=== PATIENT | male | born 1995 | race Hispanic/Latino ===

== ENCOUNTER 2018-03-04 22:19 | Emergency (ER) | payer BC, SELFPAY ==
[2018-03-04] MEDS ORDERED: IBUPROFEN 400 MG TAB ONE (22:44)
--- NOTE | 2018-03-04 23:23 | ER ---
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 I was able to pull myself up but my right leg got pinned by the gate." Pt reports severe pain in mid calf area. No deformity noted, good pedal pulses. Transition of care: patient was not received from another setting of care. Onset of symptoms was March 04, 2018 at 21:30. Risk Assessment: Do you want to hurt yourself or someone else? Patient reports no desire to harm self or others. Initial Sepsis Screen: Does the patient meet any 2 criteria? No. Patient's initial sepsis screen is negative. Does the patient have a suspected source of infection? No. Patient's initial sepsis screen is negative. Care prior to arrival: Splint applied. 22:30 Method Of Arrival: EMS: [facility] tl2 22:30 Acuity: NASIMA 4 tl2 Triage Assessment: 22:32 General: Appears in no apparent distress. uncomfortable, Behavior is calm, cooperative, tl2 appropriate for age. Pain: Complains of pain in right [place] Pain currently is 8 out of 10 on a pain scale. Neuro: Level of Consciousness is awake, alert, obeys commands, Oriented to person, place, time, situation. Cardiovascular: Denies chest pain. Respiratory: Airway is patent Respiratory effort is even, unlabored, Respiratory pattern is regular, symmetrical. GI: No signs and/or symptoms were reported involving the gastrointestinal system. Derm: Skin is pink, warm \\T\\ dry. Injury Description: Crush injury sustained to right mag[place]. Historical: - Allergies: 22:32 No Known Allergies; tl2 - Home Meds: 22:32 None [Active]; tl2 - PMHx: 22:32 None; tl2 - PSHx: 22:32 None; tl2 - Immunization history:: Adult Immunizations up to date. - Social history:: Smoking status: Patient uses tobacco products, denies chronic smoking, but will smoke occasionally. - Ebola Screening: : No symptoms or risks identified at this time. Screenin:34 Abuse screen: Denies threats or abuse. Nutritional screening: No deficits noted. tl2 Tuberculosis screening: No symptoms or risk factors identified. Fall Risk Gait- Impaired (20 pts.). Assessment: 22:32 General: see triage assessment. tl2 03/05 00:01 Reassessment: Patient appears in no apparent distress at this time. Patient and/or tl2 family updated on plan of care and expected duration. Pain level reassessed. Patient is alert, oriented x 3, equal unlabored respirations, skin warm/dry/pink. Pt verbalized understanding of discharge instructions, need for follow up and prescription usage Patient states feeling better. Vital Signs: 03/04 22:32 BP 136 / 98; Pulse 88; Resp 18; Temp 97.8(O); Pulse Ox 98% on R/A; Weight 99.79 kg; tl2 Height 5 ft. 5 in. (165.10 cm); Pain 8/10; 03/05 00:01 BP 136 / 86; Pulse 80; Resp 18; Pulse Ox 100% on R/A; tl2 10 22:32 Body Mass Index 36.61 (99.79 kg, 165.10 cm) tl2 ED Course: 03/04 22:20 Patient arrived in ED. ds1 22:22 Willa Rocha, RN is Primary Nurse. tl2 22:29 Celia Hoang FNP-C is PHCP. snw 22:29 Gil Funes MD is Attending Physician. snw 22:31 Triage completed. tl2 22:32 Arm band placed on right wrist. tl2 22:34 Patient has correct armband on for positive identification. Call light in reach. Side tl2 rails up X2. 22:43 Tib Fib Right XRAY In Process Unspecified. EDMS 03/05 00:01 No provider procedures requiring assistance completed. Patient did not have IV access tl2 during this emergency room visit. Administered Medications: 03/04 22:38 Drug: Motrin 400 mg Route: PO; tl2 03/05 00:02 Follow up: Response: No adverse reaction; Pain is decreased tl2 Outcome: 03/04 23:22 Discharge ordered by . snw 03/05 00:01 Discharged to home ambulatory, with family. tl2 Condition: stable Discharge instructions given to patient, family, Instructed on discharge instructions, follow up and referral plans. medication usage, Demonstrated understanding of instructions, follow-up care, medications, Prescriptions given X 1. 00:02 Patient left the ED. tl2 Signatures: Dispatcher [employer] EDMS Celia Hoang, SAFETY BELT INSTALLER-C SAFETY BELT INSTALLER-Brigitte Valenzuela ds1 Willa Rocha, RN RN tl2
--- NOTE | 2018-03-04 23:23 | EDPHYS ---
Physician Documentation [facility] Name: Darion Reese Age: 23 yrs Sex: Male : 1995 Arrival Date: 03/04/2018 Time: 22:20 Bed 8 Private MD: ED Physician Gil Funes HPI: 03/04 22:45 This 23 yrs old Male presents to ER via EMS with complaints of Crush Injury To snw Leg. 22:45 The patient presents with an abrasion, a crush injury, from a heavy object, pain. The snw complaints affect the right mag[place]. Context: The problem was sustained at work, resulted from a crush injury, from industrial equipment, from a machinery, the patient can partially bear weight, Problem is a result from a previous injury: No. Onset: The symptoms/episode began/occurred suddenly, just prior to arrival. Associated signs and symptoms: The patient has no apparent associated signs or symptoms. Treatment prior to arrival includes: no previous treatment. Treatment prior to arrival includes: splinting the affected extremity. Severity of symptoms: At their worst the symptoms were mild. The patient has not experienced similar symptoms in the past. It is unknown whether or not the patient has recently seen a physician. Pt states he was on the back of a rail car, the gate was closing and pt jumped out of the way but got caught between the gate and the platform x 2 minutes. No LOC, initial lower back pain that has improved, right tib/fib splinted per ems. Historical: - Allergies: 22:32 No Known Allergies; tl2 - Home Meds: 22:32 None [Active]; tl2 - PMHx: 22:32 None; tl2 - PSHx: 22:32 None; tl2 - Immunization history:: Adult Immunizations up to date. - Social history:: Smoking status: Patient uses tobacco products, denies chronic smoking, but will smoke occasionally. - Ebola Screening: : No symptoms or risks identified at this time. ROS: 22:45 Constitutional: Negative for fever, chills, and weight loss, Eyes: Negative for injury, snw pain, redness, and discharge, ENT: Negative for injury, pain, and discharge, Neck: Negative for injury, pain, and swelling, Cardiovascular: Negative for chest pain, palpitations, and edema, Respiratory: Negative for shortness of breath, cough, wheezing, and pleuritic chest pain, Abdomen/GI: Negative for abdominal pain, nausea, vomiting, diarrhea, and constipation, : Negative for injury, bleeding, discharge, and swelling, Skin: Negative for injury, rash, and discoloration, Neuro: Negative for headache, weakness, numbness, tingling, and seizure. 22:45 Back: Positive for pain at rest, pain with movement. 22:45 MS/extremity: Positive for contusion, pain, swelling, of the right leg. Exam: 22:44 Constitutional: This is a well developed, well nourished patient who is awake, alert, snw and in no acute distress. Head/Face: Normocephalic, atraumatic. Eyes: Pupils equal round and reactive to light, extra-ocular motions intact. Lids and lashes normal. Conjunctiva and sclera are non-icteric and not injected. Cornea within normal limits. Periorbital areas with no swelling, redness, or edema. ENT: Nares patent. No nasal discharge, no septal abnormalities noted. Tympanic membranes are normal and external auditory canals are clear. Oropharynx with no redness, swelling, or masses, exudates, or evidence of obstruction, uvula midline. Mucous membranes moist. Neck: Trachea midline, no thyromegaly or masses palpated, and no cervical lymphadenopathy. Supple, full range of motion without nuchal rigidity, or vertebral point tenderness. No Meningismus. Chest/axilla: Normal chest wall appearance and motion. Nontender with no deformity. No lesions are appreciated. Cardiovascular: Regular rate and rhythm with a normal S1 and S2. No gallops, murmurs, or rubs. Normal PMI, no JVD. No pulse deficits. Respiratory: Lungs have equal breath sounds bilaterally, clear to auscultation and percussion. No rales, rhonchi or wheezes noted. No increased work of breathing, no retractions or nasal flaring. Abdomen/GI: Soft, non-tender, with normal bowel sounds. No distension or tympany. No guarding or rebound. No evidence of tenderness throughout. Back: No spinal tenderness. No costovertebral tenderness. Full range of motion. Skin: Warm, dry with normal turgor. Normal color with no rashes, no lesions, and no evidence of cellulitis. Neuro: Awake and alert, GCS 15, oriented to person, place, time, and situation. Cranial nerves II-XII grossly intact. Motor strength 5/5 in all extremities. Sensory grossly intact. Cerebellar exam normal. Normal gait. Psych: Awake, alert, with orientation to person, place and time. Behavior, mood, and affect are within normal limits. 22:44 Musculoskeletal/extremity: Extremities: grossly normal except: noted in the right [place]: abrasion, contusion, tenderness. Vital Signs: 22:32 BP 136 / 98; Pulse 88; Resp 18; Temp 97.8(O); Pulse Ox 98% on R/A; Weight 99.79 kg; tl2 Height 5 ft. 5 in. (165.10 cm); Pain 8/10; 03/05 00:01 BP 136 / 86; Pulse 80; Resp 18; Pulse Ox 100% on R/A; tl2 03/04 22:32 Body Mass Index 36.61 (99.79 kg, 165.10 cm) tl2 MDM: 03/04 22:29 Patient medically screened. snw 23:23 Data reviewed: vital signs, nurses notes. Data interpreted: Pulse oximetry: on room air snw is 98 %. Interpretation: normal. Counseling: I had a detailed discussion with the patient and/or guardian regarding: the historical points, exam findings, and any diagnostic results supporting the discharge/admit diagnosis, the presence of at least one elevated blood pressure reading (>120/80) during this emergency department visit, radiology results, the need for outpatient follow up, to return to the emergency department if symptoms worsen or persist or if there are any questions or concerns that arise at home. Special discussion: I have referred the patient to see his PCP for further evaluation of high blood pressure. Based on the history and exam findings, there is no indication for further emergent testing or inpatient evaluation. I discussed with the patient/guardian the need to see the primary care provider for further evaluation of the symptoms. 03/04 22:33 Order name: Tib Fib Right XRAY snw Administered Medications: 22:38 Drug: Motrin 400 mg Route: PO; tl2 03/05 00:02 Follow up: Response: No adverse reaction; Pain is decreased tl2 Disposition: 06:36 Co-signature as Attending Physician, Gil Funes MD I agree with the assessment and shey plan of care. Disposition: 03/04/18 23:22 Discharged to Home. Impression: Contusion of right lower leg, Fall on same level, unspecified, Low back pain. - Condition is Stable. - Discharge Instructions: Back Pain, Adult, Hypertension, Musculoskeletal Pain, VIS, Tetanus, Diphtheria (Td) - CDC, Back Injury Prevention, [id number], Cryotherapy, Heat Therapy. - Prescriptions for Motrin IB 200 mg Oral Tablet - take 2 tablet by ORAL route every 6 hours As needed as needed with food; 40 tablet. - Medication Reconciliation Form, Thank You Letter, Antibiotic Education, Prescription Opioid Use form. - Follow up: Private Physician; When: 2 - 3 days; Reason: Recheck today's complaints, Continuance of care, Re-evaluation by your physician. Follow up: Emergency Department; When: As needed; Reason: Worsening of condition. Signatures: Dispatcher [employer] EDGil Falk MD MD cha Therrien, Shelly, STUDIO RECEPTIONIST-C STUDIO RECEPTIONIST-Csnw Willa Rocha RN RN tl2 Corrections: (The following items were deleted from the chart) 00:02 03/04 23:22 03/04/2018 23:22 Discharged to Home. Impression: Contusion of right lower tl2 leg; Fall on same level, unspecified; Low back pain. Condition is Stable. Forms are Medication Reconciliation Form, Thank You Letter, Antibiotic Education, Prescription Opioid Use. Follow up: Private Physician; When: 2 - 3 days; Reason: Recheck today's complaints, Continuance of care, Re-evaluation by your physician. Follow up: Emergency Department; When: As needed; Reason: Worsening of condition. snw
--- NOTE | 2018-03-05 07:46 | RAD REPORT ---
EXAM DESCRIPTION: RAD - Tib Fib Right - 03/04/2018 10:53 pm CLINICAL HISTORY: Right leg pain status post injury FINDINGS: No fracture is seen
== END 2018-03-05 00:02 | disposition home or self-care (01) ==
LOC: ER 22:19
DX: S80.11XA Contusion of right lower leg, initial encounter (principal); W31.89XA Contact with other specified machinery, initial encounter; Y93.89 Activity, other specified; Y92.89 Other specified places as the place of occurrence of the external cause; Y99.8 Other external cause status; Z72.0 Tobacco use
CPT/HCPCS: 99284